=== PATIENT | female | born 1980 | race Caucasian/White ===

== ENCOUNTER 2023-12-24 10:17 | Emergency (ER) | payer MEDICAID ==
[~2023-12-24] VITALS: Ht 170.2 cm; Wt 113.4 kg
[2023-12-24 10:37] VITALS: BP 110/66; TEMP 98.2
[2023-12-24] MEDS ORDERED: CEFTRIAXONE 1 G VIAL ONE (11:08)
[2023-12-24] MEDS ORDERED: PENICILLIN G BENZATHINE 2.4 MMU/4 ML ML IM ONE (11:08)
[2023-12-24] MEDS: CEFTRIAXONE 1 G VIAL IM ONE (11:15)
[2023-12-24] MEDS: PENICILLIN G BENZATHINE 2.4 MMU/4 ML ML IM ONE (11:16)
[2023-12-24] MEDS ORDERED: DOXY100C2 PO (11:20)
[2023-12-24 11:42] VITALS: O2SAT 99
[2023-12-25 18:09] LABS: CHLAMYDIA TRACHOMATIS NAA Negative (Negative); NEISSERIA GONORRHOEAE NAA Negative (Negative)
[2023-12-26 05:12] LABS: RAPID PLASMA REAGIN QUAL. Reactive (Non Reactive)
== END 2023-12-24 11:43 | disposition home or self-care (01) ==
LOC: ER 10:22
DX: A64 Unspecified sexually transmitted disease (principal); I10 Essential (primary) hypertension; R10.2 Pelvic and perineal pain; N89.8 Other specified noninflammatory disorders of vagina
CPT/HCPCS: 99284; 96372 ×2; 87491; 87591; J0558; J0696